=== PATIENT | female | born 1940 | race Caucasian/White ===

== ENCOUNTER 2017-08-25 09:08 | Inpatient (IN) | payer MEDICARE ==
[~2017-08-25] VITALS: Ht 162.6 cm; Wt 90.7 kg
[~2017-08-25 09:08] MED LIST: ASPI81EC PO; ATEN100 PO; HYDACE5 PO; HYDCHL25 PO; HYDR100 PO; IRBE150 PO; METF500 PO; Triamcinolone A15 G2 EXT
[2017-08-30] MEDS ORDERED: METO50ER PO (06:30)
[2017-08-31 05:34] LABS: BASOPHILS ABSOLUTE AUTO 0.06 K/mm3 (0.00-0.23); BASOPHILS PERCENT AUTO 1 % (0-2); EOSINOPHILS ABSOLUTE AUTO 0.37 K/mm3 (0.00-0.68); EOSINOPHILS PERCENT AUTO 3 % (0-6); Hematocrit 35.7 % (33.0-51.0); Hemoglobin 11.8 g/dL (11.5-16.0); IMMATURE GRAN ABSOLUTE AUTO 0.04 K/mm3 (0.00-0.10); IMMATURE GRAN PERCENT AUTO 0 % (0-1); LYMPHOCYTES PERCENT AUTO 21 % (21-46); MONOCYTES ABSOLUTE AUTO 0.95 K/mm3 (0.16-1.47); MONOCYTES PERCENT AUTO 9 % (4-13); Mean Corpuscular HGB 30.2 pg (26.0-34.0); Mean Corpuscular HGB Conc 33.1 g/dL (31.5-36.5); Mean Corpuscular Volume 91 fL (80-100); Mean Platelet Volume 10.5 fL (9.1-12.4); NEUTROPHILS ABSOLUTE AUTO 7.28 K/mm3 (1.96-9.15); NEUTROPHILS PERCENT AUTO 66 % (41-73); Platelet Count 280 K/mm3 (150-400); RDW Coefficient Variation 12.7 % (11.7-14.2); RDW Standard Deviation 41.7 fL (35.1-46.3); Red Blood Cell Count 3.91 M/mm3 (3.80-5.20)
[2017-08-31 05:55] LABS: Bun/Creatinine Ratio 26.3 (12.0-20.0); Calcium, Blood 8.8 mg/dL (8.5-10.1); Creatinine, Blood 1.33 mg/dL (0.40-1.00); Magnesium, Blood 1.8 mg/dL (1.6-2.4); Potassium, Blood 4.2 mmol/L (3.5-5.5)
[2017-08-31] MEDS ORDERED: ACET500 PO (10:27)
[2017-08-31] MEDS ORDERED: Tasprin325 MG PO (10:29)
[2017-08-31] MEDS ORDERED: OXYC5 PO (10:30)
== END 2017-08-31 10:50 | disposition home or self-care (01) | DRG 470 ==
LOC: SURS 08-30 05:53 → PRE IP 08-30 07:30 → EDSTATUS 08-30 07:30 → ORSCMMR 08-30 07:30 → SURS 08-30 10:11
PROVIDERS: Orthopaedic Surgery
PROC: 0SRC0J9 Replacement of Right Knee Joint with Synthetic Substitute, Cemented, Open Approach (ICD-10-PCS; principal; 2017-08-30 07:30)
DX: M17.11 Unilateral primary osteoarthritis, right knee (principal); E11.22 Type 2 diabetes mellitus with diabetic chronic kidney disease; I12.9 Hypertensive chronic kidney disease with stage 1 through stage 4 chronic kidney disease, or unspecified chronic kidney disease; N18.9 Chronic kidney disease, unspecified; Z79.84 Long term (current) use of oral hypoglycemic drugs; Z79.899 Other long term (current) drug therapy; Z87.891 Personal history of nicotine dependence; Z88.1 Allergy status to other antibiotic agents
CPT/HCPCS: 36415; 73560-RT; 80048; 82947; 83735; 85025; 88300; 97110; 97116; 97161; 97530; C1713; C1776; G8978; G8979; J0171; J0690; J0735; J1885; J2250; J2795; J3010; J3370; J7120

== ENCOUNTER 2021-10-13 07:56 | Day surgery (SDC) | payer OTHER ==
[~2021-10-13] VITALS: Ht 162.6 cm; Wt 87.8 kg
[~2021-10-13 07:56] MED LIST changes: +ACET500 PO; +ERGO400 PO; +METO50ER PO; +OXYC5 PO; +Tasprin325 MG PO
--- NOTE | 2021-10-13 08:39 | NUR ---
Ambulatory in Day Surgery. History, Chart, Medications and Allergies reviewed before start of procedure. Lungs clear T/O to Auscultation. Patient confirms NPO status and agrees with scheduled surgery. Pre-Op teaching done. Pt verbalizes understanding.
--- NOTE | 2021-10-13 11:00 | NUR ---
10/13/21 Tisha Curtis PATIENT RECEIVED VANO 1GM AT 0925 IN PREOP SETTING PRIOR TO ARRIVING IN THE OR.
--- NOTE | 2021-10-13 17:05 | NUR ---
SHIFT SUMMARY PT A&OX4, VSS/RA. S/P L TKA, DRESSING CDI, POLAR JEAN/TEDS/SCDS. AMB SBA W/FWW & GB TO BRP/CHAIR/BED. UP TO CHAIR FOR DINNER. VOIDING WELL. LULY PO. PAIN MANAGED WITH TYLENOL, TORADOL AND OXY 5 MG. WILL REPORT TO ONCOMING NOC SHAVONNE.
--- NOTE | 2021-10-14 02:25 | NUR ---
SHIFT SUMMARY: PT. AOX4, DENIES PAIN, MEDICATED WITH SCHEDULED PAIN MEDICINE PER EMAR. VOIDING WELL TO THE BATHROOM, AMBULATES WITH WALKER & GB WITH SBA. L KNEE INCISION WITH PRIMO DRESSING ON C/D/I. NO ACUTE CHANGES NOTED. ABLE TO MEKE NEEDS KNOWN & USES CALL LIGHT.WILL CONTINUE TO MONITOR.
[2021-10-14 03:58] LABS: BASOPHILS ABSOLUTE AUTO 0.09 K/mm3 (0.00-0.23); BASOPHILS PERCENT AUTO 1 % (0-2); EOSINOPHILS ABSOLUTE AUTO 0.54 K/mm3 (0.00-0.68); EOSINOPHILS PERCENT AUTO 4 % (0-6); Hematocrit 35.1 % (33.0-51.0); Hemoglobin 11.4 g/dL (11.5-16.0); IMMATURE GRAN ABSOLUTE AUTO 0.05 K/mm3 (0.00-0.10); IMMATURE GRAN PERCENT AUTO 0 % (0-1); LYMPHOCYTES ABSOLUTE AUTO 2.44 K/mm3 (0.84-5.20); LYMPHOCYTES PERCENT AUTO 20 % (21-46); MONOCYTES ABSOLUTE AUTO 1.14 K/mm3 (0.16-1.47); MONOCYTES PERCENT AUTO 9 % (4-13); Mean Corpuscular HGB 29.4 pg (26.0-34.0); Mean Corpuscular HGB Conc 32.5 g/dL (31.5-36.5); Mean Corpuscular Volume 91 fL (80-100); Mean Platelet Volume 10.3 fL (9.1-12.4); NEUTROPHILS PERCENT AUTO 65 % (41-73); Platelet Count 281 K/mm3 (150-400); RDW Coefficient Variation 13.2 % (11.7-14.2); RDW Standard Deviation 43.6 fL (35.1-46.3); Red Blood Cell Count 3.88 M/mm3 (3.80-5.20); White Blood Cell Count 12.26 K/mm3 (4.00-11.30)
[2021-10-14 04:13] LABS: Bun/Creatinine Ratio 25.9 (12.0-20.0); Calcium, Blood 8.6 mg/dL (8.5-10.1); Creatinine, Blood 1.39 mg/dL (0.40-1.00); Magnesium, Blood 1.7 mg/dL (1.6-2.4)
[2021-10-14] MEDS ORDERED: OXYC5 PO (07:09)
[2021-10-14] MEDS ORDERED: Aspir 8181 MG PO (09:07)
--- NOTE | 2021-10-14 10:20 | NUR ---
SHIFT SUMMARY PT A&OX4, VSS/RA, LULY PO, VOIDING WELL, AMB SBA W/FWW & GB, PAIN MANAGED WITH TYLENOL, TORADOL AND OXY 5 MG. LEFT FLOOR VIA WC WITH [employer]ENTER REPRESENTATIVE, TO GO HOME WITH SPOUSE, WITH ALL PERSONAL POSSESSIONS INCLUDING DC PACKET, NARC SCRIPT, AND POLAR JEAN. DC INS PROVIDED, PT REP UNDERSTANDING THOSE INSTRUCTIONS INCLUDING ASA 81 BID, TEDS, POLAR JEAN USE, SHORT FREQU AMB W/FWW, P.T. EXERCISES, PAIN MED, FOLLOW UP APPT WITH SURGEON. IV DC'D.
== END 2021-10-14 10:30 | disposition home or self-care (01) ==
LOC: ORSCMMR 07:56 → SURS 12:52 → ORSCMMR 17:30 → ORD 17:30 → ORSCMMR 10-14 10:30
PROVIDERS: Orthopaedic Surgery
PROC: 8E0Y0CZ Robotic Assisted Procedure of Lower Extremity, Open Approach (ICD-10-PCS; principal; 2021-10-13 10:45)
PROC: 0SRD0JA Replacement of Left Knee Joint with Synthetic Substitute, Uncemented, Open Approach (ICD-10-PCS; principal; 2021-10-13 10:45)
DX: M17.12 Unilateral primary osteoarthritis, left knee (principal); E11.9 Type 2 diabetes mellitus without complications; I10 Essential (primary) hypertension; Z79.84 Long term (current) use of oral hypoglycemic drugs; Z79.899 Other long term (current) drug therapy; E66.9 Obesity, unspecified; Z68.32 Body mass index [BMI] 32.0-32.9, adult
CPT/HCPCS: 27447; S2900; 36415; 73560-LT; 80048; 82947; 83735; 85025; 97110; 97116; 97162; A9270; C1776; J0171; J0735; J1885; J2704; J2795; J3010; J3370; J7050; J7120

== ENCOUNTER → 2023-06-23 | Outpatient (CLI) | payer OTHER ==
[~2023-06-23] MED LIST changes: +Aspir 8181 MG PO
== END | disposition home or self-care (01) ==
LOC: LAB 08:52 → LAB SHORT 08:52
DX: L08.9 Local infection of the skin and subcutaneous tissue, unspecified (principal)
CPT/HCPCS: 87070; 87075; 87205